=== PATIENT | male | born 1985 | race Caucasian/White ===

== ENCOUNTER 2021-01-10 20:53 | Emergency (ER) | payer MEDICAID, OTHER ==
[~2021-01-10] VITALS: Ht 170.2 cm; Wt 72.6 kg
[2021-01-11] MEDS ORDERED: IBUPROFEN 800 MG TAB PO ONE (00:45)
[2021-01-11] MEDS ORDERED: AMOXICILLIN/CLAVUL 875 MG TAB PO ONE (00:45)
[2021-01-11 01:01] VITALS: BP 154/109
== END 2021-01-11 01:11 | disposition home or self-care (01) ==
LOC: ER 20:55
DX: K04.7 Periapical abscess without sinus (principal); R03.0 Elevated blood-pressure reading, without diagnosis of hypertension; F17.210 Nicotine dependence, cigarettes, uncomplicated

== ENCOUNTER 2022-08-18 04:35 | Emergency (ER) | payer MEDICAID ==
[~2022-08-18] VITALS: Ht 170.2 cm; Wt 70.0 kg
[2022-08-18 05:02] VITALS: BP 154/95
[2022-08-18 07:04] LABS: Basophils # (auto) 0 10 ^3/uL (0-0.2); Basophils % (auto) 0.2 % (0.0-2.0); Eosinophils # (auto) 0 10 ^3/uL (0-0.8); Eosinophils % (auto) 0.2 % (0.0-7.0); Hematocrit 47.1 % (41.0-53.0); Hemoglobin 15.8 g/dL (13.5-17.5); Lymphocytes # (auto) 1.2 10 ^3/uL (0.4-5.4); Lymphocytes % (auto) 8.3 % (10.0-50.0); Mean Corpuscular Hemoglobin 29.9 pg (28.0-32.0); Mean Corpuscular Hgb Conc. 33.6 g/dL (32.0-36.0); Mean Corpuscular Volume 89.2 fL (80.0-100.0); Monocytes # (auto) 0.8 10 ^3/uL (0-1.3); Monocytes % (auto) 5.3 % (0.0-12.0); Neutrophils # (auto) 12.5 10 ^3/uL (1.6-8.6); Red Blood Cells 5.28 10^6/uL (4.5-5.90); Red Cell Distribution Width 13.5 % (11.8-14.3); White Blood Cell 14.5 10^3/uL (4.4-10.8)
[2022-08-18 07:28] LABS: Potassium 4.4 mmol/L (3.5-5.1)
[2022-08-18] MEDS ORDERED: SODIUM CHLORIDE 0.9% 1,000 ML IV ONE ×2 (07:30)
[2022-08-18 07:35] LABS: Albumin 4.6 g/dL (3.4-5.0); BUN/Creatinine Ratio 15.3; Bilirubin, Total 0.8 mg/dL (0.2-1.0); Calcium 9.5 mg/dL (8.5-10.1); Total Protein 7.7 g/dL (6.4-8.2)
[2022-08-18] MEDS ORDERED: KETOROLAC TROMETH 30 MG/ML 1ML VIAL IV ONE (07:45)
[2022-08-18] MEDS ORDERED: FUROSEMIDE 40 MG/4 ML VIAL IV ONE (09:45)
== END 2022-08-18 11:24 | disposition left against medical advice (07) ==
LOC: ER 04:35 → EDBD 04:35 → ER 11:24
DX: N20.0 Calculus of kidney (principal); I10 Essential (primary) hypertension; F17.210 Nicotine dependence, cigarettes, uncomplicated
CPT/HCPCS: 36415; 74176; 80053; 85025; 96374; 99284; J1885